=== PATIENT | male | born 1975 | race Caucasian/White ===

== ENCOUNTER → 2023-09-20 | Day surgery (SDC) | payer MEDICAID ==
[~2023-09-20] VITALS: Ht 180.3 cm; Wt 104.3 kg
[~2023-09-20] MED LIST: BUPIVACAINE HCL/PF 0.5% (5MG/ML) 10ML ONE; CEFAZOLIN SODIUM 1000MG/VIAL ONE; DEXAMETHASONE 4MG/ML 1ML VIAL ONE; FENTANYL CITRATE/PF 50MCG/ML 2ML VIAL IV PRN; FENTANYL CITRATE/PF 50MCG/ML 5ML VIAL ONE; GLYCOPYRROLATE 0.2 MG/ML 2ML VIAL ONE; KETOROLAC 60MG/2ML VIAL IM ONE; LACTATED RINGERS 1,000 ML IV SCH; MEPERIDINE HCL/PF 25MG/ML CPJ IV PRN; MIDAZOLAM HCL 2 MG/2 ML VIAL ONE; NEOSTIGMINE METHYLSULFATE 1MG/ML 10 ML VIAL ONE; ONDANSETRON HCL 4MG/2ML INJ ONE; PROPOFOL 200MG/20ML VIAL IV ONE; SKIN ADHESIVE 0.7 GM EA TOP ONE; SUGAMMADEX SODIUM 200 MG/2 ML VIAL IV SCH
[2023-09-20] MEDS: HYDROMORPHONE HCL/PF 2MG/ML CPJ IV PRN (09:46)
[2023-09-20] MEDS: ONDANSETRON HCL 4MG/2ML INJ IV PRN (10:51)
[2023-09-20 11:50] VITALS: BP 127/83; PULSE 104; RESP 19
[2023-09-20] MEDS: ACETAMINOPHEN WITH CODEINE 300/30MG TABLET PO SCH (11:50)
== END | disposition home or self-care (01) ==
LOC: OR 05:45
PROVIDERS: ATTEND Surgery
DX: K80.12 Calculus of gallbladder with acute and chronic cholecystitis without obstruction (principal); G47.30 Sleep apnea, unspecified; Z79.899 Other long term (current) drug therapy; Z98.890 Other specified postprocedural states
CPT/HCPCS: 47562; 88304; J3010; J3490 ×2; J0690; J1100; J1885; J2250; J2405; J2704; J1170; J7030; J2710